=== PATIENT | female | born 1945 | race Caucasian/White ===

== ENCOUNTER 2018-12-20 07:13 | Day surgery (SDC) | payer MEDICARE ==
[~2018-12-20] VITALS: Ht 162.6 cm; Wt 62.6 kg
[2018-12-20 07:46] LABS: BASOPHILS 0.2 % (0-2); EOSINOPHILS 0.7 % (0-7); HEMATOCRIT 36.7 % (36.0-48.0); HEMOGLOBIN 12.3 g/dL (12-16); IMMATURE GRANULOCYTES 0.4 % (0-5); LYMPHOCYTES 27.8 % (15-50); MCH 31.3 pg (26.0-34.0); MCHC 33.5 g/dL (31.0-37.0); MCV 93.4 fL (80.0-100.0); MEAN PLATELET VOLUME 9.2 fL (7.4-10.4); MONOCYTES 5.5 % (2-11); NEUTROPHILS 65.4 % (40-80); PLATELET COUNT 251 10x3/uL (130-400); RBC 3.93 10x6/uL (4.00-5.40); RDW 16.4 % (11.5-14.5); WBC 12.3 10x3/uL (4.8-10.8)
[2018-12-20 08:02] LABS: CALCIUM 8.5 mg/dL (8.5-10.1); CARBON DIOXIDE 32.4 mmol/L (21.0-32.0); POTASSIUM - SERUM 3.4 mmol/L (3.5-5.1)
[2018-12-20 08:09] LABS: INR 1.19 (0.85-1.17); PROTIME 14.6 SECONDS (11.6-15.0)
[2018-12-20] MEDS ORDERED: PERCOCET 10-321 EAC1 PO (08:48)
[2018-12-20] MEDS ORDERED: OMEPRAZOLE20 M1 PO (08:48)
[2018-12-20] MEDS ORDERED: AMIODARONE HCL200 MG PO (08:49)
[2018-12-20] MEDS ORDERED: CARAFATE1 G PO (08:49)
[2018-12-20] MEDS ORDERED: FUROSEMIDE40 MG PO (08:50)
[2018-12-20] MEDS ORDERED: PHENERGAN25 M1 PO (08:50)
[2018-12-20] MEDS ORDERED: CALAN SR180 MG (08:50)
[2018-12-20] MEDS ORDERED: NEURONTIN 400400 MG PO (08:51)
[2018-12-20] MEDS ORDERED: LIPITOR20 MG PO (08:52)
[2018-12-20] MEDS ORDERED: XALATAN 0.0052.5 ML EACH EYE (08:52)
[2018-12-20] MEDS ORDERED: ZANAFLEX4 MG PO (08:53)
[2018-12-20] MEDS ORDERED: ELAVIL25 MG PO (08:53)
[2018-12-20] MEDS ORDERED: AMITIZA24 MCG PO (08:54)
[2018-12-20] MEDS ORDERED: DIALYVITE (08:54)
[2018-12-20] MEDS ORDERED: GLUCOPHAGE1000 MG PO (08:55)
[2018-12-20] MEDS ORDERED: SPIRIVA RESPIMAT4 G1 INH (08:55)
[2018-12-20 09:05] VITALS: Ht 162.6 cm; Wt 62.6 kg
--- NOTE | 2018-12-20 10:24 | NUR ---
1000 RAZIA VILLASENOR APN NOTIFIED OF ELEVATED WBC ORDERS RECEIVED. LAB NOTIFIED PT. INFORMED.
[2018-12-20] MEDS ORDERED: ULTRAM50 MG PO (13:45)
--- NOTE | 2018-12-23 11:43 | OP ---
PATIENT NAME: OLINDA SUTTON MEDICAL RECORD: [id number] :45 LOCATION:[facility] ADMISSION DATE: SURGEON: NELSY RINCON MD DATE OF OPERATION: 12/20/2018 REFERRING PHYSICIAN: Estrada Carrasco MD PREOPERATIVE DIAGNOSIS: End-stage renal disease. POSTOPERATIVE DIAGNOSIS: End-stage renal disease. OPERATION PERFORMED: Creation of a brachiobasilic Tiffanie type AV fistula in the left upper extremity with plans for delayed return to the operating room for creation of a translocated brachial artery to basilic vein AV fistula. SURGEON: Nelsy Rincon MD ANESTHESIA: Regional nerve block plus TIVA per MANAGER BACKGROUND. PREOPERATIVE NOTE: This 73-year-old white female patient from [place], [place], has end-stage renal disease and needs a long-term access. She is brought to the operating room with plans to create an AV fistula in her left upper extremity, very likely a brachiobasilic AV fistula and she understands and I fully informed her that she will likely require return to the operating room in 3-4 weeks for creation of the translocated basilic vein fistula. DESCRIPTION OF PROCEDURE: With patient under TIVA and after a regional nerve block, she was placed in supine position and prepped and draped in a sterile manner. I used a Octavio drain as a proximal venous tourniquet and applied nitroglycerin paste to intact skin of upper arm and forearm. Ultrasound exam demonstrated a very satisfactory basilic vein and brachial artery. An incision was placed over the basilic vein or median cubital vein connecting with the basilic vein and brachial artery. These vessels were exposed and dissected from the surrounding tissues. One tributary was divided between 3-0 Vicryl ligatures on the vein and the vein was distally ligated and then transected and bevelled and flushed with heparinized saline and treated with topical papaverine and clamped. The artery was opened for about 6 mm and flushed proximally and distally with heparinized saline. It was occluded with doubly looped Silastic tapes. The bevelled end of vein was then anastomosed to the side of artery with running 7-0 Prolene and when the anastomosis was completed, the suture line was hemostatic and with release of the occluding loops and clamps, excellent flow developed immediately within the fistula manifested by a palpable pulsation and pleasing thrill. Doppler demonstrated continuous pulsatile flow and Doppler examination at the wrist demonstrated pulsatile high resistance type normal radial artery and ulnar artery flow signals. The patient's wound was closed with interrupted inverted 3-0 Vicryl and then running intracuticular 4-0 Stratafix and Dermabond glue. A dressing of Maxorb Ag, Tegaderm, and Cavilon skin prep was applied and she was awakened and taken to the recovery room. Blood loss during the operation was trivial and unreplaced. Sponges, instruments, and needles were accounted for. No drain used and no specimen submitted for histopathology. OPERATIVE REPORT [id number] OLINDA SUTTON PLAN: The patient will be discharged today with a prescription for Toradol for pain and instructions to use an ice pack off and on as needed for discomfort or pain. She is to return to see me in my office in 2 weeks and at that time, we can schedule her for her next operation. TRANSINT:[id number] Voice Confirmation ID: [id number] DOCUMENT ID: [id number] NELSY RINCON MD at 1143 CC: MONTSERRAT DANIELS [id number] DICTATION DATE: 12/20/18 1357 BLOWING ENGINEER: 12/20/18 1451 [facility] 12/20/18 [facility] [address] [place] [address]
== END 2018-12-20 16:30 | disposition home or self-care (01) ==
LOC: D.OPS 07:13
PROVIDERS: ATTEND Internal Medicine
DX: N18.6 End stage renal disease (principal); Z01.812 Encounter for preprocedural laboratory examination